=== PATIENT | female | born 1960 | race Caucasian/White ===

== ENCOUNTER 2023-06-18 09:26 | Emergency (ER) | payer OTHER, SELFPAY ==
[2023-06-18 09:32] VITALS: BP 158/67; PULSE 99; RESP 16; TEMP 37.1; O2SAT 97; BMI 29.4
--- NOTE | 2023-06-18 09:45 | XR_ITS ---
The [address] [address] Patient Name: KIM HERNANDEZ MRN: [id number] date: 1960 Sex: F Assigned Patient Location: ER Current Patient Location: ED.MAIN Accession/Order Number: [id number] Exam Date: 06/18/2023 10:09 Report Date: 06/18/2023 10:35 At the request of: MAY ARDON Procedure: XR hip RT min 2V PROCEDURE: XR hip RT min 2V COMPARISON: None. HISTORY: atraumatic pain, history of arthritis FINDINGS: BONES:No acute fracture or dislocation. Moderate to severe osteoarthritis with joint space narrowing subchondral lytic and sclerotic changes and marginal osteophyte formation SOFT TISSUES:Negative. No visible soft tissue swelling. EFFUSION:None visible. OTHER: Negative. XR/XR hip RT min 2V IMPRESSION: Moderate to severe right hip osteoarthritis Electronically authenticated by: ADOLFO VIVAR Date: 06/18/2023 10:35
--- NOTE | 2023-06-18 09:47 | ED_ITS ---
HPI - Extremity Problem General Chief complaint: Extremity Problem, Nontraumatic Stated complaint: LOWER EXTREMITY PAIN Time Seen by Provider: 06/18/23 09:29 Source: patient Mode of arrival: walk-in History of Present Illness HPI Narrative: 63-year-old female presents for a chief complaint of right hip pain. A few years ago she had her left hip replaced and at that time was told that one day she'll need her right hip replaced as well. Over the past few weeks she's been having increased pain in the right hip but hasn't fallen. Her whole leg hurts as well as her left leg and now her arms are hurting a little bit too. She's been using a cane. the pain is moderate to severe. Related Data Previous Rx's Medication Instructions Recorded tramadol 50 mg tablet 50 mg PO Q6H PRN pain 5 days #20 06/18/23 tabs Allergies Allergy/AdvReac Type Severity Reaction Status Date / Time nickel Allergy Rash Verified 06/18/23 09:32 prochlorperazine Allergy Rash Verified 06/18/23 09:32 [From Compazine] codeine AdvReac Vomiting Verified 06/18/23 09:33 Review of Systems ROS Narrative A ten point review of systems is negative except as noted above. Exam Narrative Exam Narrative: Nurses note and vital signs reviewed and patient is not hypoxic. General: The patient appears well and in no apparent distress. Patient is resting comfortably on cart. Skin: Warm, dry, no pallor noted. There is no rash noted. Head: Normocephalic, atraumatic Eye: Normal conjunctiva, no drainage Ears, Nose, Mouth, and Throat: oral mucosa is moist. Nares patent. Cardiovascular: Regular Rate and Rhythm Respiratory: Patient is in no distress, no accessory muscle use, lungs are clear to auscultation, no wheezing, rales or rhonchi Back: non-tender, no CVA tenderness bilaterally to percussion. GI: soft and nontender Musculoskeletal: medial leg is swollen. The right hip has no bruise or rash or swelling and has good range of motion. Neurological: A&O, normal speech Psychiatric: Cooperative Constitutional Vital Signs, click to edit/add: Last Vital Signs Temp 98.7 F 06/18/23 09:32 Pulse 99 H 06/18/23 09:32 Resp 16 06/18/23 09:32 BP 158/67 H 06/18/23 09:32 Pulse Ox 97 06/18/23 09:32 O2 Del Method Room Air 06/18/23 09:32 Course Vital Signs Vital signs: Vital Signs Temperature 98.7 F 06/18/23 09:32 Pulse Rate 99 H 06/18/23 09:32 Respiratory Rate 16 06/18/23 09:32 Blood Pressure 158/67 H 06/18/23 09:32 Pulse Oximetry 97 06/18/23 09:32 Oxygen Delivery Method Room Air 06/18/23 09:32 Temperature 98.7 F 06/18/23 09:32 Pulse Rate 99 H 06/18/23 09:32 Respiratory Rate 16 06/18/23 09:32 Blood Pressure 158/67 H 06/18/23 09:32 Pulse Oximetry 97 06/18/23 09:32 Oxygen Delivery Method Room Air 06/18/23 09:32 MDM - Extremity (Nontraumatic) MDM Narrative Medical decision making narrative: X-ray findings are discussed with the patient's. Her blood work is negative. My clinical impression is that her symptoms are due to the right hip issue. She has an appointment with the orthopedist in a few weeks and she'll keep that appointment. Treatment diagnosis and follow-up were discussed with the patient. Differential Diagnosis Differential diagnosis: Likely other (hip fracture, arthritis, rhabdomyolysis) Lab Data Attestation: I reviewed the patient's lab results. Labs: Lab Results 06/18/23 Range/Units 09:56 WBC 9.4 (4.0-11.0) 10^3/uL RBC 3.76 L (4.20-5.40) 10^6/uL Hgb 11.4 L (12.0-16.0) g/dL Hct 34.7 L (36.0-48.0) % MCV 92.3 (81.0-99.0) fL MCH 30.3 (26.7-34.0) pg MCHC 32.9 (29.9-35.2) g/dL RDW 13.2 (11.0-15.0) % Plt Count 256 (150-450) 10^3/uL MPV 10.0 (9.5-13.5) fL Neut % (Auto) 70.3 (43.0-75.0) % Lymph % (Auto) 19.4 L (20.5-60.0) % Rapides % (Auto) 9.1 (1.7-12.0) % Eos % (Auto) 0.5 L (0.9-7.0) % Baso % (Auto) 0.4 (0.2-2.0) % Neut # (Auto) 6.6 H (1.4-6.5) 10^3/uL Lymph # (Auto) 1.8 (1.2-3.8) 10^3/uL Rapides # (Auto) 0.9 H (0.3-0.8) 10^3/uL Eos # (Auto) 0.1 (0.0-0.7) 10^3/uL Baso # (Auto) 0.0 (0.0-0.1) 10^3/uL Abs Immat Gran (auto) 0.03 (0.00-0.03) 10^3/uL Imm/Tot Granulo (auto) 0.3 (0.0-0.5) % Sodium 137 (136-145) mmol/L Potassium 3.5 (3.5-5.1) mmol/L Chloride 101 (98-107) mmol/L Carbon Dioxide 26.1 (21.0-32.0) mmol/L Anion Gap 13.4 BUN 14.0 (7.0-18.0) mg/dL Creatinine 0.90 (0.55-1.02) mg/dL Est GFR ( Amer) >60 (>=60) Est GFR (Non-Af Amer) >60 (>=60) BUN/Creatinine Ratio 15.6 Glucose 124 H (74-106) mg/dL Calcium 9.2 (8.5-10.1) mg/dL Myoglobin 65 (9-82) ng/mL Discharge Plan Discharge Chief Complaint: Extremity Problem, Nontraumatic Clinical Impression: Arthritis of right hip Patient Disposition: Home, Self-Care Time of Disposition Decision: 10:48 Condition: Good Mode of Transportation: Private Vehicle Prescriptions / Home Meds: New tramadol 50 mg tablet 50 mg PO Q6H PRN (Reason: pain) 5 Days Qty: 20 0RF Instructions: Osteoarthritis (ED), Joint Replacement Surgery (DC) Stand Alone Forms: Portal Instructions Referrals: Physician,Non-Staff, MD [Primary Care Provider] - 1 week
[2023-06-18 10:11] LABS: Basophils Percent Auto 0.4 % (0.2-2.0); Eosinophils Absolute Auto 0.1 10^3/uL (0.0-0.7); Eosinophils Percent Auto 0.5 % (0.9-7.0); Hematocrit 34.7 % (36.0-48.0); Hemoglobin 11.4 g/dL (12.0-16.0); Immature Granulocytes Abs Auto 0.03 10^3/uL (0.00-0.03); Immature Granulocytes Pct Auto 0.3 % (0.0-0.5); Lymphocytes Absolute Auto 1.8 10^3/uL (1.2-3.8); Lymphocytes Percent Auto 19.4 % (20.5-60.0); Mean Corpuscular HGB Conc 32.9 g/dL (29.9-35.2); Mean Corpuscular Hemoglobin 30.3 pg (26.7-34.0); Mean Corpuscular Volume 92.3 fL (81.0-99.0); Monocytes Absolute Auto 0.9 10^3/uL (0.3-0.8); Monocytes Percent Auto 9.1 % (1.7-12.0); Neutrophils Absolute Auto 6.6 10^3/uL (1.4-6.5); Neutrophils Percent Auto 70.3 % (43.0-75.0); Platelet Count 256 10^3/uL (150-450); Red Blood Count 3.76 10^6/uL (4.20-5.40); Red Cell Distribution Width 13.2 % (11.0-15.0); White Blood Count 9.4 10^3/uL (4.0-11.0)
[2023-06-18 10:15] LABS: Anion Gap 13.4; BUN Creatinine Ratio 15.6; Calcium 9.2 mg/dL (8.5-10.1); Carbon Dioxide 26.1 mmol/L (21.0-32.0); Chloride 101 mmol/L (98-107); Estimated GFR (African America >60 (>=60); Estimated GFR (Non-African Ame >60 (>=60); Glucose 124 mg/dL (74-106); Potassium 3.5 mmol/L (3.5-5.1); Sodium 137 mmol/L (136-145)
[2023-06-18 10:26] LABS: Myoglobin 65 ng/mL (9-82)
== END 2023-06-18 11:01 | disposition home or self-care (01) ==
PROVIDERS: Emergency Provider Emergency Medicine
DX: M16.11 Unilateral primary osteoarthritis, right hip (principal)
CPT/HCPCS: 36415; 73502; 80048; 83874; 85025; 99284

== ENCOUNTER 2024-01-26 12:13 | Emergency (ER) | payer OTHER, SELFPAY ==
[2024-01-26 12:22] VITALS: BP 115/91; PULSE 70; TEMP 36.7; O2SAT 95; BMI 29.8
--- NOTE | 2024-01-26 12:39 | CT_ITS ---
The [address] [address] Patient Name: KIM HERNANDEZ MRN: [id number] date: 1960 Sex: F Assigned Patient Location: ER Current Patient Location: ER Accession/Order Number: [id number] Exam Date: 01/26/2024 13:11 Report Date: 01/26/2024 13:50 At the request of: LILO GUIDO Procedure: CT head/brain wo con EXAMINATION: CT head/brain wo con REASON FOR EXAM: fall COMPARISON: None FINDINGS: There is no evidence for intracranial hemorrhage. Subarachnoid spaces are normal. No cortical edema or mass. No shift of midline structures. There is no fluid in the sinuses, middle ear cavities or mastoids. No skull fracture. There is a skin laceration posteriorly but no underlying scalp hematoma CT/CT head/brain wo con IMPRESSION: No intracranial hemorrhage or skull fracture. No acute intracranial abnormality identified. Electronically authenticated by: RUDY URBINA Date: 01/26/2024 13:50
--- NOTE | 2024-01-26 12:39 | CT_ITS ---
The [address] [address] Patient Name: KIM HERNANDEZ MRN: [id number] date: 1960 Sex: F Assigned Patient Location: ER Current Patient Location: Accession/Order Number: [id number] Exam Date: 01/26/2024 13:11 Report Date: 01/26/2024 14:13 At the request of: LILO GUIDO Procedure: CT pelvis wo con Exam Type: CT BONY PELVIS Exam Date and Time: 01/26/2024 1:11 PM EDT Indication: 63 years old Female with pain following fall Comparison: Radiographs 12/19/2023 TECHNIQUE: Axial CT images of the bony pelvis were obtained without intravenous contrast. Coronal and sagittal reformatted images were obtained. Dose reduction techniques were achieved by using automated exposure control and/or adjustment of mA and/or kV according to patient size and/or use of iterative reconstruction technique. FINDINGS: There is no acute displaced fracture or dislocation identified. Surgical changes are present from bilateral hip arthroplasty. Hardware appears intact. No dislocation identified. No evidence of hardware loosening is evident. No abnormal fluid collection identified associated with the arthroplasty. Sacroiliac joints are congruent. The pubic symphysis is congruent. Moderate to severe degenerative disease the lower lumbar spine. The regional soft tissues are unremarkable. Limited evaluation the pelvic viscera is unremarkable. CT/CT pelvis wo con IMPRESSION: Post surgical changes without acute osseous abnormality. Electronically authenticated by: LAMIN RAMÍREZ Date: 01/26/2024 14:13
--- NOTE | 2024-01-26 12:39 | CT_ITS ---
The [address] [address] Patient Name: KIM HERNANDEZ MRN: [id number] date: 1960 Sex: F Assigned Patient Location: ER Current Patient Location: ER Accession/Order Number: [id number] Exam Date: 01/26/2024 13:11 Report Date: 01/26/2024 13:50 At the request of: LILO GUIDO Procedure: CT cervical spine wo con EXAMINATION: CT cervical spine wo con REASON FOR EXAM: fall COMPARISON: None FINDINGS: There is degenerative disease C5-C6 and C6-C7. There is a slight degenerative retrolisthesis of C5 on C6 less than 2 mm. Posterior disc osteophytosis at this level is seen although does not result in any significant central stenosis. No epidural hematoma or prevertebral soft tissue swelling. There is no fracture. Bilateral foraminal stenosis C5-C6 and on the right at C6-C7. CT/CT cervical spine wo con IMPRESSION: Degenerative changes in the cervical spine but no traumatic spondylosis or fracture in cervical spine. Electronically authenticated by: RUDY URBINA Date: 01/26/2024 13:50
[2024-01-26] MEDS: ADACEL DIPH,PERTUSS(ACELL),TET VAC/PF 0.5 ML ADULT SYRINGE IM (12:54)
[2024-01-26] MEDS: LIDOCAINE/EPINEPHRINE/TETRACAINE 3 ML GEL.PF.APP TOPICAL (12:56)
--- NOTE | 2024-01-26 16:14 | ED_ITS ---
HPI HPI - General Adult General Chief complaint: Head Injury Stated complaint: head injury and rt hip pain Time Seen by Provider: 01/26/24 12:39 Source: patient Mode of arrival: walk-in Limitations: no limitations History of Present Illness HPI narrative: The patient is coming to the ER after she was cleaning the window and she fell backward hitting the dresser, she had no loss of consciousness but she have a laceration to the back of her scalp and she is complaining of right hip pain to have a history of hip replacements and she is worried that there is something happened to the hip The patient did walk into here Related Data Home Medications ?Medication ?Instructions ?Recorded ?Confirmed aspirin 81 mg tablet,delayed mg 01/26/24 release losartan 100 mg tablet mg 01/26/24 pravastatin 20 mg tablet mg 01/26/24 Previous Rx's ?Medication ?Instructions ?Recorded tramadol 50 mg tablet 50 mg PO Q6H PRN pain 5 days #20 06/18/23 tabs Allergies Allergy/AdvReac Type Severity Reaction Status Date / Time nickel Allergy Rash Verified 01/26/24 12:26 prochlorperazine Allergy Rash Verified 01/26/24 12:26 [From Compazine] codeine AdvReac Vomiting Verified 01/26/24 12:26 Opioid HPI Opioid Management Most Recent Opioid Data: Last Pain Scale 1 01/26/24 12:36 Review of Systems ROS Status of ROS 10 or more systems reviewed and unremark able except as noted in history and below Exam Narrative Exam Narrative: Nurses notes and vital signs reviewed and patient is not hypoxic. General: Well-appearing and in no apparent distress. Skin: Warm, dry, no pallor noted. No rash. Head: Normocephalic, the patient have a laceration in the back of her scalp and it is measuring almost 2 cm and a half linear clean Neck: Supple, non-tender. Eye: Pupils are equal, round and EOMI. No scleral icterus. Ears, Nose, Mouth, and Throat: TM are clear, no nasal mucosal hypertrophy. Oral mucosa is moist, no posterior oropharynx erythema, uvula is mid-line Cardiovascular: Regular Rate and Rhythm without murmur, gallop or rub. Respiratory: No accessory muscle use or respiratory distress. Lungs are clear to auscultation, no wheezing, rales or rhonchi Chest Wall: no tenderness Back: No midline thoracic or lumbar vertebral tenderness. No CVA tenderness Musculoskeletal: normal ROM, no calf or popliteal tenderness, no lower extremity edema/swelling GI: Abdomen is soft, non-distended. Normal bowel sounds. No masses appreciated. No tenderness to palpation. No rebound, guarding, or rigidity noted. Neurological: A&O x4. No cranial nerve dysfunction observed. No truncal ataxia. Moves all extremities. Sensation intact. Psychiatric: Cooperative and interactive. Normal mood and affect. Constitutional Vital Signs, click to edit/add: Last Vital Signs Temp 98.0 F 01/26/24 12:22 Pulse 70 01/26/24 12:22 Resp 18 01/26/24 12:22 BP 115/91 01/26/24 12:22 Pulse Ox 95 01/26/24 12:22 O2 Del Method Room Air 01/26/24 12:22 Course Vital Signs Vital signs: Vital Signs Temperature 98.0 F 01/26/24 12:22 Pulse Rate 70 01/26/24 12:22 Respiratory Rate 18 01/26/24 12:22 Blood Pressure 115/91 01/26/24 12:22 Pulse Oximetry 95 01/26/24 12:22 Oxygen Delivery Method Room Air 01/26/24 12:22 Temperature 98.0 F 01/26/24 12:22 Pulse Rate 70 01/26/24 12:22 Respiratory Rate 18 01/26/24 12:22 Blood Pressure 115/91 01/26/24 12:22 Pulse Oximetry 95 01/26/24 12:22 Oxygen Delivery Method Room Air 01/26/24 12:22 Medical Decision Making [facility] Narrative Medical decision making narrative: Patient provided with tetanus booster L ET applied to the laceration The patient had a CT head that showed no acute pathology 5 serjio applied to the laceration Patient tolerated the procedure well and she is to keep the wound clean and dry for the next 5 to 7 days she is to come back to the ER in case of new symptoms The patient is to follow up with primary care physician in next 2-3 days or to return to the emergency department should any of the signs or symptoms worsen or new symptoms develop. The patient agrees with the following Diagnosis and Treatment plan and the patient will be discharged home. Discharge Plan Discharge Stand Alone Forms: Portal Instructions Chief Complaint: Head Injury Clinical Impression: Contusion of hip, Head injury, Fall, Laceration of scalp Patient Disposition: Home, Self-Care Time of Disposition Decision: 14:22 Prescriptions / Home Meds: No Action tramadol 50 mg tablet 50 mg PO Q6H PRN (Reason: pain) 5 Days Qty: 20 0RF aspirin 81 mg tablet,delayed release (DR/EC) pravastatin 20 mg tablet losartan 100 mg tablet Print Language: Cymraes Instructions: Laceration (DC), Head Injury (DC) Referrals: Physician,Non-Staff, MD [Primary Care Provider] - 1 week Discharge Date/Time: 01/26/24 14:52
== END 2024-01-26 14:52 | disposition home or self-care (01) ==
PROVIDERS: Emergency Provider Emergency Medicine
DX: S01.01XA Laceration without foreign body of scalp, initial encounter (principal); S09.90XA Unspecified injury of head, initial encounter; S70.01XA Contusion of right hip, initial encounter; W19.XXXA Unspecified fall, initial encounter; Z96.643 Presence of artificial hip joint, bilateral
CPT/HCPCS: 12001; 70450; 72125; 72192; 90471; 90715; 99285